=== PATIENT | female | born 1975 | race Caucasian/White ===

== ENCOUNTER 2023-10-06 21:12 | Emergency (ER) | payer SELFPAY ==
[2023-10-06] VITALS (18 sets, daily range): BP systolic 123–142; BP diastolic 69–88; PULSE 82; TEMP 37; O2SAT 98–100; BMI 29.3
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
[2023-10-06] MEDS: ONDANSETRON PF 4 MG/2 ML VIAL IV (22:29)
[2023-10-07] VITALS (9 sets, daily range): BP systolic 121–135; BP diastolic 71–74; O2SAT 99–100
== END 2023-10-07 01:45 | disposition home or self-care (01) ==
PROVIDERS: Emergency Provider Emergency Medicine; PCP Internal Medicine
DX: S16.1XXA Strain of muscle, fascia and tendon at neck level, initial encounter (principal); V43.62XA Car passenger injured in collision with other type car in traffic accident, initial encounter
CPT/HCPCS: 70450; 71045; 72125; 96374; 99284; J2405